=== PATIENT | female | born 1990 | race Caucasian/White ===

== ENCOUNTER 2018-11-02 07:42 | Outpatient (CLI) | payer MEDICAID | END 2018-11-02 09:48 | disposition home or self-care (01) | LOC: OBT 07:42 → L-D 07:42 → OBT 09:48 | DX: O36.8130 Decreased fetal movements, third trimester, not applicable or unspecified (principal); Z3A.36 36 weeks gestation of pregnancy | CPT/HCPCS: 76818 ==

== ENCOUNTER 2018-11-16 14:26 | Outpatient (CLI) | payer MEDICAID | END 2018-11-16 17:05 | disposition home or self-care (01) | LOC: OBT 14:26 → L-D 14:26 → OBT 17:05 | DX: O62.9 Abnormality of forces of labor, unspecified (principal); Z3A.38 38 weeks gestation of pregnancy | CPT/HCPCS: 76818 ==

== ENCOUNTER 2018-11-17 11:10 | Inpatient (IN) | payer MEDICAID ==
[2018-11-17] MEDS ORDERED: MISOPROSTOL 200 MCG TAB PR ×2 (12:00→16:00)
[2018-11-17] MEDS ORDERED: IBUPROFEN 600 MG TAB PO (12:00)
[2018-11-17] MEDS ORDERED: BUTORPHANOL 1 MG INJ IV (12:00)
[2018-11-17] MEDS ORDERED: BUTORPHANOL 2 MG INJ IV (12:00)
[2018-11-17] MEDS ORDERED: CARBOPROST 250 MCG INJ IM ×2 (12:00→16:00)
[2018-11-17] MEDS ORDERED: METHYLERGONOVINE 0.2 MG INJ IM ×2 (12:00→16:00)
[2018-11-17] MEDS ORDERED: OXYTOCIN 30 UNITS/LR 500 ML IV ×2 (12:00→16:00)
[2018-11-17] MEDS ORDERED: LIDOCAINE 1% (MPF) 30 ML INJ INJ (12:00)
[2018-11-17 12:26] LABS: ADD MAN DIFF? NO
[2018-11-17 12:27] LABS: BASOPHILS % 0.4 % (0.0-2.0); EOSINOPHILS % 0.3 % (0.0-7.0); HEMATOCRIT 36.4 % (37.0-47.0); HEMOGLOBIN 11.8 g/dl (12.0-16.0); LYMPHOCYTES # 0.9 10^3/ul (0.8-2.9); LYMPHOCYTES % 13.5 % (15.0-51.0); MEAN CORPUSCULAR HEMOGLOBIN 28.6 pg (29.0-33.0); MEAN CORPUSCULAR HGB CONC 32.4 g/dl (32.0-37.0); MEAN CORPUSCULAR VOLUME 88.1 fl (82.0-101.0); MEAN PLATELET VOLUME 11.3 fl (7.4-10.4); MONOCYTE # 0.6 10^3/ul (0.3-0.9); NEUTROPHIL # 5.4 10^3/ul (1.6-7.5); NEUTROPHILS % 77.2 % (39.0-77.0); PLATELET COUNT 168 10^3/UL (140-415); RED BLOOD COUNT 4.13 10^6/ul (4.20-5.40); RED CELL DISTRIBUTION WIDTH 13.3 % (11.5-14.5)
[2018-11-17] MEDS: LACTATED RINGER'S 1,000 ML IV (12:45)
[2018-11-17 12:46] LABS: PROTIME 11.2 Sec (11.9-14.9); PT RATIO 0.9
[2018-11-17 12:47] LABS: PARTIAL THROMBOPLASTIN TIME 26.6 Sec (23.0-35.0)
[2018-11-17] MEDS: AMPICILLIN 2 GM/NS (PMX) 100 ML IV (12:51)
[2018-11-17 13:26] LABS: HEPATITIS B SURFACE ANTIGEN NEGATIVE (NEGATIVE)
[2018-11-17 13:36] LABS: HIV 1&2 ANTIBODY NEGATIVE (NEGATIVE)
[2018-11-17] MEDS: OXYTOCIN 30 UNITS/LR 500 ML IV ×3 (14:27→18:30)
[2018-11-17] MEDS ORDERED: PHYTONADIONE 1 MG/0.5 ML SYG (15:05)
[2018-11-17] MEDS ORDERED: ERYTHROMYCIN 1 GM OPH OINT (15:05)
[2018-11-17 15:12] LABS: RAPID PLASMA REAGIN NONREACTIVE (NR)
[2018-11-17] MEDS: LACTATED RINGER'S 1,000 ML IV* (15:52)
[2018-11-17] MEDS ORDERED: AMPICILLIN 1 GM/NS (PMX) 50 ML IV (16:00)
[2018-11-17] MEDS ORDERED: HYDROCODONE/APAP (5/325) TAB PO (16:00)
[2018-11-17] MEDS ORDERED: ZOLPIDEM 5 MG TAB PO (16:00)
[2018-11-17] MEDS ORDERED: ACETAMINOPHEN 325 MG TAB PO (16:00)
[2018-11-17] MEDS ORDERED: DIPHENHYDRAMINE 25 MG CAP PO (16:00)
[2018-11-17 16:30] LABS: AMPHETAMINE/METHAMPHETAMINE Negative (NEGATIVE); BARBITURATES Negative (NEGATIVE); BENZODIAZEPINES Negative (NEGATIVE); CANNABINOIDS Negative (NEGATIVE); COCAINE Negative (NEGATIVE); OPIATES Negative (NEGATIVE)
[2018-11-17] MEDS: IBUPROFEN 800 MG TAB PO (17:47)
[2018-11-17] MEDS: LANOLIN HPA 1 PKT TOP (17:47)
[2018-11-17] MEDS: WITCH HAZEL/GLYCERIN PAD PR (17:47)
[2018-11-17] MEDS: BENZOCAINE 20% 56 ML SPRAY TOP (17:48)
[2018-11-18] MEDS: IBUPROFEN 800 MG TAB PO ×4 (00:16→17:41)
[2018-11-18 06:47] LABS: ADD MAN DIFF? NO
[2018-11-18 06:50] LABS: BASOPHILS % 0.4 % (0.0-2.0); EOSINOPHILS # 0.1 10^3/ul (0.0-0.5); EOSINOPHILS % 0.9 % (0.0-7.0); HEMATOCRIT 34.8 % (37.0-47.0); HEMOGLOBIN 11.2 g/dl (12.0-16.0); LYMPHOCYTES # 1.4 10^3/ul (0.8-2.9); LYMPHOCYTES % 17.1 % (15.0-51.0); MEAN CORPUSCULAR HEMOGLOBIN 28.8 pg (29.0-33.0); MEAN CORPUSCULAR HGB CONC 32.2 g/dl (32.0-37.0); MEAN CORPUSCULAR VOLUME 89.5 fl (82.0-101.0); MEAN PLATELET VOLUME 11.5 fl (7.4-10.4); MONOCYTE # 0.7 10^3/ul (0.3-0.9); MONOCYTES % 8.3 % (0.0-11.0); NEUTROPHILS % 72.6 % (39.0-77.0); PLATELET COUNT 150 10^3/UL (140-415); RED BLOOD COUNT 3.89 10^6/ul (4.20-5.40); RED CELL DISTRIBUTION WIDTH 13.4 % (11.5-14.5)
[2018-11-18 06:50] LABS: WHITE BLOOD COUNT 8.2 10^3/ul (4.8-10.8)
[2018-11-18] MEDS: MAGNESIUM HYDROXIDE 30ML CUP PO (09:00)
[2018-11-18] MEDS: SENNA/DOCUSATE NA (8.6MG/50MG) TAB PO (09:01)
[2018-11-19] MEDS: IBUPROFEN 800 MG TAB PO ×4 (01:24→18:00)
[2018-11-19] MEDS: MEASLES,MUMPS,RUBELLA VACCINE INJ SC* (07:50)
[2018-11-19] MEDS: DIPHTH/TET/ACEL PERTUSS (ADULT) 0.5 ML VIAL IM* (07:50)
[2018-11-19] MEDS: VARICELLA VACCINE LIVE/PF 1,350 UNIT/0.5 ML ML SC* (07:51)
[2018-11-19 13:30] LABS: RUBELLA ANTIBODY - IGM <20.00 AU/mL
== END 2018-11-19 18:25 | disposition home or self-care (01) | DRG 807 ==
LOC: OBT 11:10 → L-D 11:11 → OBT 11:35 → L-D 11:35 → PP1 15:45
PROVIDERS: Obstetrics & Gynecology
PROC: 10E0XZZ Delivery of Products of Conception, External Approach (ICD-10-PCS; principal; 2018-11-17)
DX: O70.0 First degree perineal laceration during delivery (principal); Z37.0 Single live birth; Z3A.38 38 weeks gestation of pregnancy
CPT/HCPCS: 76818; 80307; 85025; 85610; 85730; 86592; 86703; 86762; 86850; 86900; 86901; 87340; J3430